=== PATIENT | female | born 1975 | race Caucasian/White ===

== ENCOUNTER 2020-09-27 02:19 | Inpatient (IN) | payer BC, SELFPAY ==
[2020-09-27] VITALS (13 sets, daily range): BP systolic 99–130; BP diastolic 49–83; PULSE 63–73; RESP 16–18; TEMP 36.6–38.1; O2SAT 91–99
--- NOTE | 2020-09-27 02:32 | W.ED.GENAD ---
Discharge Plan Disposition Patient Disposition: [facility] INPATIENT Condition: Fair Discharge Details Clinical Impression: Diverticulitis large intestine w/o perforation or abscess w/o bleeding Primary Care Provider: None,None ED Provider: Chuck Bowman Home Meds and New Rx's Prescriptions: No Action No Known Home Meds RF: 0 Medical Decision Making Patient story is very good for appendicitis, however, her exam reveals tenderness in both the right lower and right upper quadrant. She has not having pelvic pain or vaginal symptoms and pelvic exam deferred. IV established and laboratory studies sent. Morphine given for pain. CT scan of abdomen pelvis ordered. Laboratory studies with slight elevated white count to 12. Otherwise unremarkable labs. CT scan shows diverticulitis of the posterior ascending colon. This would explain the patient's right upper and right lower quadrant pain and tenderness. Because of her peritoneal signs case is discussed with surgery. Patient started on Cipro and Flagyl IV. She will be admitted to the surgical service for further management. Lab Data Lab results reviewed: Yes I reviewed the patient's lab results. HPI General Mode of arrival: ambulatory. Date/Time Provider Initiated Documentation: 09/27/20 02:32. Limitations to Documentation: no limitations. Information obtained by: patient and RN notes reviewed. HPI Narrative: Patient presents to the ED with worsening right side abdominal pain. Patient initially had abdominal pain that started on . Initially thought it was just indigestion or gas. Has become progressively worse. Movement, walking, coughing makes the pain worse. She has no appetite. She has had no fever or vomiting. She has had a few episodes of diarrhea. She denies any back pain or urinary symptoms. She denies any pelvic pain, vaginal bleeding, vaginal discharge. As the pain has continued to get worse, she finally felt the need to be evaluated. Related Data Home Medications Medication Instructions Recorded Confirmed Unknown [No Known Home Meds] 09/27/20 09/27/20 Allergies Allergy/AdvReac Type Severity Reaction Status Date / Time No Known Allergies Allergy Unverified 09/27/20 02:35 General Stated Complaint: Abd Prob JEOVANNY: 3 Review of Systems Narrative: 07/30 Review of Systems completed and is negative except as stated above in HPI (Systems reviewed: Const, Eyes, ENT, Resp, CV, GI, , MSK, Skin, Neuro) [facility] Medical History (Updated 09/27/20 @ 04:12 by Chuck Bowman MD) No significant past medical history Surgical History (Updated 09/27/20 @ 03:30 by Chuck Bowman MD) S/P ovarian cystectomy Social History Smoking/Tobacco Use Status: Never Smoking risk assessment performed?: Yes Alcohol Intake: current Alcohol Intake frequency: a few times a month Drug use: Never Substance use type: does not use Do you feel safe at home: Yes Do you feel safe in your relationship?: Yes Exam Narrative Exam Narrative: Const: WDWN female in NAD. HEENT: NC/AT. Normal facial exam. Eyes: Normal conjunctiva and sclera. Neck: Supple. Trachea midline. Lungs: Normal respiratory effort. Lungs are clear. Cor: RRR without murmur/gallop. Good radial pulses. GI: Soft and ND. Tender in the RLQ/RUQ with guarding in both quadrants as well. Peritoneal signs present on right. Back: No CVAT : deferred Neuro: A+O x 3. Normal speech, mentation, gait. Cranial nerves II - XII grossly intact. No gross motor or sensory deficit. Ext: No C/C/E. Skin: Warm and dry without rash. Course Vital Signs Vital signs: Vital Signs Temperature 97.9 F 09/27/20 02:25 Temperature 97.9 F 09/27/20 02:29 Temperature Source Temporal Artery Scan 09/27/20 02:29 Pulse 64 09/27/20 02:29 Respiratory Rate 18 09/27/20 02:29 Respiratory Effort Non-Labored 09/27/20 02:27 Blood Pressure 112/49 L 09/27/20 02:29 Blood Pressure Position Supine 09/27/20 02:29 Pulse Oximetry 98 09/27/20 02:29 Oxygen Delivery Method Room Air 09/27/20 02:29 Oxygen Flow Rate 0 09/27/20 02:29 Pain Level 7 09/27/20 02:29
[2020-09-27 02:55] LABS: Abs Immature Grans 0.04 10^3/uL (0.0-0.06); Absolute Basophil Count 0.04 10^3/uL (0.0-0.2); Absolute Eosinophil Count 0.13 10^3/uL (0.0-0.7); Absolute Lymphocyte Count 1.26 10^3/uL (1.2-3.4); Absolute Monocyte Count 1.28 10^3/uL (0.1-0.8); Basophils % 0.3; Eosinophils % 1.1; HCT 40.8 % (36.0-46.0); HGB 13.5 g/dL (11.2-15.7); Immature Grans % 0.3; Lymphocytes % 10.7; MCH 31.5 pg (27.0-33.0); MCHC 33.1 % (32.0-36.0); MCV 95.1 fL (80-95); MPV 9.8 fL (8.0-11.0); Monocytes % 10.8; Neutrophils % 76.8; Nucleated RBC 0 %; Platelet Count 190 10^3/uL (130-400); RBC 4.29 10^6/uL (3.93-5.22); RDW 11.7 % (11.7-14.6); RDW-SD 40.6 fL; WBC 11.82 10^3/uL (4.4-10.8)
[2020-09-27] MEDS: Lactated Ringers 1,000 ML 125 ML IV (02:58)
[2020-09-27] MEDS: MORPHine 10 MG/ML VIAL 4 MG IVP (02:58)
[2020-09-27 03:08] LABS: ALT 16 U/L (14-59); AST 10 U/L (15-37); Absolute Neutrophil Count 9.08 10^3/uL (1.2-6.7); Albumin 3.7 g/dL (3.4-5.0); Alkaline Phosphatase 50 U/L (46-116); Anion Gap 6.8 mmol/L (3-11); BUN 12 mg/dL (7-18); Bilirubin, Total 0.9 mg/dL (0.2-1.0); CO2 28.2 mmol/L (21.0-32.0); CREATININE 1.01 mg/dL (0.55-1.02); Chloride 99 mmol/L (98-107); Estimated GFR 59.01 (mL/min/1.73m2); Glucose 112 mg/dL (74-106); Lipase 57 U/L (73-393); Potassium 3.9 mmol/L (3.5-5.1); Sodium 134 mmol/L (136-145); Total Protein 7.7 g/dL (6.4-8.2)
[2020-09-27 03:20] LABS: HCG Qual (Serum) Negative
[2020-09-27] MEDS: Normal Saline Flush 10 ML SYR IVP ×5 (03:38→21:49)
[2020-09-27] MEDS: Omnipaque 350 MG/ML 100 ML BTL IJ (03:39)
[2020-09-27] MEDS: Normal Saline - Diluent 50 ML VIAL IV (03:40)
--- NOTE | 2020-09-27 03:51 | DI.VRAD_ITS ---
PROCEDURE INFORMATION: Exam: CT Abdomen And Pelvis With Contrast Exam date and time: 09/27/2020 2:43 AM Age: 45 years old Clinical indication: Abdominal pain; Localized; Right; Prior surgery; Surgery type: Ovarian cyst TECHNIQUE: Imaging protocol: Computed tomography of the abdomen and pelvis with intravenous contrast. Radiation optimization: All CT scans at this facility use at least one of these dose optimization techniques: automated exposure control; mA and/or kV adjustment per patient size (includes targeted exams where dose is matched to clinical indication); or iterative reconstruction. Contrast material: [id number]; Contrast volume: 91 ml; Contrast route: INTRAVENOUS (IV); COMPARISON: No relevant prior studies available. FINDINGS: Liver: Normal. No mass. Gallbladder and bile ducts: Normal. No calcified stones. No ductal dilation. Pancreas: Normal. No ductal dilation. Spleen: Normal. No splenomegaly. Adrenal glands: Normal. No mass. Kidneys and ureters: Normal. No hydronephrosis. Stomach and bowel: Acute diverticulitis of the posterior ascending colon. Appendix: No evidence of appendicitis. Intraperitoneal space: Unremarkable. No free air. No significant fluid collection. Vasculature: Unremarkable. No abdominal aortic aneurysm. Lymph nodes: Unremarkable. No enlarged lymph nodes. Urinary bladder: Unremarkable as visualized. Reproductive: Small ovarian cysts up to 3.3 cm. Bones/joints: Unremarkable. No acute fracture. Soft tissues: Unremarkable. IMPRESSION: Acute diverticulitis of the posterior ascending colon. Dictated and Authenticated by: Miah Blood MD. Ordering:JOSHUA Woods MD
--- NOTE | 2020-09-27 03:58 | DI.CT_ITS ---
EXAM: CT ABDOMEN PELVIS W CLINICAL HISTORY: right side abdominal pain/tenderness TECHNIQUE: Imaging Protocol: Axial computed tomography images with coronal and sagittal reformatted images were created and reviewed CONTRAST MATERIAL: Intravenous: Omnipaque 350 Contrast volume:91 mL Oral: No COMPARISON: No exams were available for comparison FINDINGS: ABDOMEN: Lung Bases: Normal where visualized. Liver: Normal density. No measurable mass. Portal, Superior Mesenteric, and Splenic Veins: Unremarkable. Gallbladder and Biliary Tract: No radiodense calculus or dilation. Pancreas: Normal density, no abnormal calcifications or inflammatory process. Spleen: Normal. Adrenals: No masses seen. Kidneys: Normal size, contour and axis. There is a 2 mm nonobstructing stone in the upper pole of the left kidney. No masses seen. Abdominal Aorta: Abdominal portion non-dilated. Bowel: There is no evidence of bowel obstruction. There is wall thickening seen in the distal ascend ing colon and proximal transverse colon. There does appear to be a diverticulum containing high dens ity material. There is surrounding inflammation. No pneumoperitoneum. There is a normal appendix. Peritoneal Cavity: There is a trace amount of fluid in the pelvis. Lymph Nodes: Within normal limits. Bones: Unremarkable. Soft Tissues: Unremarkable. PELVIS: Bladder: Symmetric distention, no gross wall thickening. Reproductive Organs: There are bilateral ovarian cysts. The largest on the right measures 3.5 cm. T he largest on the left measures 2.3 cm. Lymph Nodes: Within normal limits. Bones: Within normal limits. IMPRESSION: Bowel wall thickening and surrounding inflammation in the distal ascending aorta and proximal transve rse colon. There does appear to be a diverticulum associated in this region. The findings are sugge stive of acute diverticulitis. Other inflammatory or infectious colitis may also be considered. No evidence of abscess or free air. RADIATION DOSE DELIVERED: 660.65mGy.cm Total DLP DATA REPOSITORY: All CT scans at this facility are submitted to the National Radiology Data Registry (NRDR) Dose Index Registry (DIR) with the [employer] (ACR). RADIATION OPTIMIZATION: All CT scans at this facility use at least one of these dose optimization te chniques: automated exposure control; mA and/or kV adjustment per patient size (includes targeted exa ms where dose is matched to clinical indication); or iterative reconstruction.
[2020-09-27] MEDS: CIPROFLOXACIN 400 MG/200 ML BAG 200 MG IVPB ×2 (04:17→15:56)
[2020-09-27] MEDS: Ketorolac 15 MG/ML VIAL IVP (04:25)
--- NOTE | 2020-09-27 04:28 | W.PM.HP.N ---
Date of service: 09/27/20 Time of Service: 12:45 Assessment and Plan Assessment and plan (1) Diverticulitis large intestine w/o perforation or abscess w/o bleeding: Status: Acute Assessment and plan: CT reviewed and shows inflammation in the ascending colon/hepatic flexure region. Diverticulitis suspected although will check stool cultures for possible colitis. Ischemic colitis or neoplasm less likely but patient will need colonoscopy as outpatient once inflammation resolves. Will admit for IV antibiotics and pain control. History of Present Illness Narrative: The patient complains of abdominal pain starting the day prior to admission. The pain worsened and she presented to the ER early this morning. She has not had this pain before. The pain is more on the right. No fever at home but she had chills. Her stool has been loose although this is a chronic issue. She has seen a geophysical e logger this year but has not had a colonoscopy in the past. No blood in her stool. No recent antibiotic use. No FH IBD or colon cancer. She is a non smoker. Review of Systems All systems reviewed & are unremarkable except as noted in HPI and below PFSH Medical History No significant past medical history Surgical History S/P ovarian cystectomy Social History Smoking/Tobacco Use Status: Never Smoking risk assessment performed?: Yes Alcohol Intake: current Alcohol Intake frequency: a few times a month Drug use: Never Substance use type: does not use Do you feel safe at home: Yes Do you feel safe in your relationship?: Yes Meds Home Medications and Allergies Home Medications Medication Instructions Recorded Confirmed Type Unknown [No Known Home Meds] 09/27/20 09/27/20 History Allergies Allergy/AdvReac Type Severity Reaction Status Date / Time No Known Allergies Allergy Unverified 09/27/20 02:35 Exam Narrative Exam Narrative: Alert Lungs CTA Heart RRR Abdomen slightly distended, active bowel sounds, tender RUQ, no peritonitis. Results Labs Result diagrams: 09/27/20 02:50 09/27/20 02:50 Labs: Laboratory Results - last 24 hr 12/12/20 12/12/20 12/12/20 02:50 02:50 02:50 WBC 11.82 H RBC 4.29 Hgb 13.5 Hct 40.8 MCV 95.1 H MCH 31.5 MCHC 33.1 RDW 11.7 Plt Count 190 MPV 9.8 Immature Gran % 0.3 Neutrophils % 76.8 Band Neutrophils % Lymphocytes % 10.7 Atypical Lymphs % Monocytes % 10.8 Eosinophils % 1.1 Basophils % 0.3 Metamyelocytes % Myelocytes % Promyelocytes % Other Cells % Nucleated RBC % 0 Absolute Neutrophils 9.08 H Absolute Lymphocytes 1.26 Absolute Monocytes 1.28 H Absolute Eosinophils 0.13 Absolute Basophils 0.04 RBC Morphology Polychromasia Hypochromasia Poikilocytosis Basophilic Stippling Anisocytosis Microcytosis Macrocytosis Spherocytes Tear Drop Cells Ovalocytes Stomatocytes Sinha[place] Bodies Gregg Cells/Echinocytes Acanthocytes (Spur) Schistocytes Sodium 134 L Potassium 3.9 Chloride 99 Carbon Dioxide 28.2 Anion Gap 6.8 BUN 12 Creatinine 1.01 Estimated GFR/1.73 m2 59.01 Glucose 112 H Calcium 9.0 Total Bilirubin 0.9 AST 10 L ALT 16 Alkaline Phosphatase 50 Total Protein 7.7 Albumin 3.7 Lipase 57 Serum HCG, Qual Negative 09/27/20 05:35 WBC Cancelled RBC Cancelled Hgb Cancelled Hct Cancelled MCV Cancelled MCH Cancelled MCHC Cancelled RDW Cancelled Plt Count Cancelled MPV Cancelled Immature Gran % Cancelled Neutrophils % Cancelled Band Neutrophils % Cancelled Lymphocytes % Cancelled Atypical Lymphs % Cancelled Monocytes % Cancelled Eosinophils % Cancelled Basophils % Cancelled Metamyelocytes % Cancelled Myelocytes % Cancelled Promyelocytes % Cancelled Other Cells % Cancelled Nucleated RBC % Cancelled Absolute Neutrophils Cancelled Absolute Lymphocytes Cancelled Absolute Monocytes Cancelled Absolute Eosinophils Cancelled Absolute Basophils Cancelled RBC Morphology Cancelled Polychromasia Cancelled Hypochromasia Cancelled Poikilocytosis Cancelled Basophilic Stippling Cancelled Anisocytosis Cancelled Microcytosis Cancelled Macrocytosis Cancelled Spherocytes Cancelled Tear Drop Cells Cancelled Ovalocytes Cancelled Stomatocytes Cancelled Sinha[place] Bodies Cancelled Gregg Cells/Echinocytes Cancelled Acanthocytes (Spur) Cancelled Schistocytes Cancelled Sodium Potassium Chloride Carbon Dioxide Anion Gap BUN Creatinine Estimated GFR/1.73 m2 Glucose Calcium Total Bilirubin AST ALT Alkaline Phosphatase Total Protein Albumin Lipase Serum HCG, Qual Last Vital Signs Temp 97.9 F 09/27/20 02:29 Pulse 73 09/27/20 04:19 Resp 16 09/27/20 04:19 BP 113/58 L 09/27/20 04:19 Pulse Ox 96 09/27/20 04:19 COVID-19 Screening Have you, or household traveled for leisure in last 14 days?: No Had IN PERSON contact w/suspected or confirmed C-19 person: No
[2020-09-27] MEDS: Normal Saline 1,000 ML 75 ML IV ×2 (05:47→21:47)
[2020-09-27] MEDS: metroNIDAZOLE 500 MG/100 ML BAG 100 MG IVPB ×3 (05:47→21:48)
[2020-09-27] MEDS: Acetaminophen 325 MG TAB 650 MG PO ×3 (08:03→21:49)
[2020-09-27 11:39] LABS: Bilirubin Negative (Negative); Blood Negative (Negative); Clarity Clear (Clear); Glucose Negative (Negative); Ketones 40 mg/dL (Negative); Leukocyte Esterase Negative (Negative); Nitrite Negative (Negative); Specific Gravity 1.015 (1.005-1.025); Urobilinogen 0.2 EU/dL (Up TO 0.2)
[2020-09-27] MEDS: Ketorolac 30 MG/ML VIAL IVP ×2 (12:00→21:48)
[2020-09-28 01:02] LABS: HCT 34.1 % (36.0-46.0); HGB 11.2 g/dL (11.2-15.7); MCH 31.8 pg (27.0-33.0); MCHC 32.8 % (32.0-36.0); MCV 96.9 fL (80-95); Platelet Count 167 10^3/uL (130-400); RBC 3.52 10^6/uL (3.93-5.22); RDW 11.9 % (11.7-14.6); RDW-SD 42.3 fL; WBC 10.93 10^3/uL (4.4-10.8)
[2020-09-28 01:48] LABS: COVID-19 RT-PCR UVMMC Result Negative (Negative)
[2020-09-28 03:15] VITALS: BP 101/60; PULSE 61; RESP 17; TEMP 37.1; O2SAT 98
[2020-09-28] MEDS: CIPROFLOXACIN 400 MG/200 ML BAG 200 MG IVPB ×2 (04:05→15:41)
[2020-09-28] MEDS: metroNIDAZOLE 500 MG/100 ML BAG 100 MG IVPB ×2 (05:40→13:59)
[2020-09-28] MEDS: Acetaminophen 325 MG TAB 650 MG PO (08:21)
[2020-09-28] MEDS: Ketorolac 30 MG/ML VIAL IVP (08:21)
[2020-09-28] MEDS: Normal Saline Flush 10 ML SYR IVP (08:22)
[2020-09-28 08:35] VITALS: BP 109/72; PULSE 62; RESP 17; TEMP 37.2; O2SAT 99
--- NOTE | 2020-09-28 09:41 | INITIAL_ITS ---
- If Service Date Differs Date of service: 09/28/20 Time of Service: 09:41 Care Management Initial Assess REASON FOR HOSPITALIZATION:: Diverticulitis PAST MEDICAL HISTORY/PAST SURGICAL HISTORY:: No signifigant past medical hx. This is her first bout of Diverticulitis PREVIOUS FUNCTIONAL STATUS/SOCIAL/FAMILY SUPPORTS:: Tamera lives with her in [place], [place]. 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 During the winter they stay in their home in . She enjoys sking, she has no children. Her other family all lives in [place]. CURRENT FUNCTIONAL STATUS:: Tamera is alert she is engaged with CM during assessment. She is hoping for a regular lunch, she states she is feeling better today. Her spouse plans to bring her some clothes today. She has not seen the provider yet to determine her discharge plan. ADVANCE DIRECTIVES:: None on file, not interestet at this time. Has patient been provided with info about the portal/API?: Yes Did the patient sign up for the portal?: No CODE STATUS:: Full Code INSURANCE COVERAGE / FINANCIAL ISSUES:: BCBS CURRENT HOME/COMMUNITY SERVICES/EQUIPMENT:: None PRIMARY CARE PHYSICIAN:: GUERO. POTENTIAL DISCHARGE NEEDS:: Follow up with and team after discharge. PATIENT/FAMILY EDUCATION NEEDS:: Discharge education, limitations and follow up plan after discharge. ANTICIPATED BARRIERS TO DISCHARGE:: None TRANSPORTATION:: Via private car with spouse at time of discharge PLAN:: Jhonatan will be discharged home when medically anticipate no additional services at time of discharge. She will follow up as directed by provider. CM will conitnue to follow throughout hospital stay.
--- NOTE | 2020-09-28 11:01 | DSE_ITS ---
Date of service: 09/28/20 Time of Service: 15:01 DS: Diagnosis Discharge Diagnosis (1) Diverticulitis large intestine w/o perforation or abscess w/o bleeding: Status: Acute Discharge Plan Disposition Patient Disposition: HOME Condition: Improving Discharge Details Reason For Visit: DIVERTICULITIS Admit Date/Time: 09/27/20 04:18 Admit Provider: An Clayton Attending Provider: An Clayton Primary Care Provider: None,None Hospital Course Hospital Course: The patient presented to the hospital with 1 day of abdominal pain that localize d to her right side. She had chills. CT scan of the abdomen pelvis showed inflammation at the hepatic flexure consistent with diverticulitis. There is no perforation. She was admitted for pain control and IV antibiotics. She did initially have a fever but this improved over her hospital course. Her white blood cell count on the day of admission was 11,000 and decreased to 10,000. Her appetite was initially poor but she was able to tolerate clear liquids. Her diet was advanced without difficulty the day after admission. Her pain was improved. She was discharged home with plans to follow-up in the surgery clinic to discuss outpatient colonoscopy in about 4 to 6 weeks. Home Meds and New Rx's Prescriptions: New ciprofloxacin HCl 500 mg tablet 500 mg PO BID Qty: 20 RF: 0 metronidazole [Flagyl] 500 mg tablet 500 mg PO Q8H Qty: 30 RF: 0 Discharge Instructions Additional Instructions: Call for any concerns including fever, increased pain, vomiting. Activity is as tolerated. Take in a low fiber diet for 1-[address] if on narcotic pain meds or if limited by pain. May use Tylenol alternating with ibuprofen for pain control. The maximum dose for Tylenol is 4000 mg/day. May use ibuprofen 800 mg every 8 hours as needed. If concerned about constipation, you may use a stool softener or milk of magnesia. Referrals: An Clayton MD [ [facility] STAFF PHYSICIAN] - (Return on 10/06/20) Activity:: Activity as Tolerated Equipment/Supplies:: No Equipment Needed Diet:: Low fiber Discharge Orders Discharge Orders: Discharge Order (Routine); Ordered 09/28/20 Ordered By: An Clayton DS: Summary Status at Discharge Functional status at discharge: independent ambulation Overall status at discharge: patient is progressing back to baseline Mental Status: mental status grossly normal Speech and Movement: speech and movement normal Mood: congruent mood Affect: normal affect Exam Narrative Exam Narrative: Alert Abdomen slightly distended but soft. Minimal and improved RUQ tenderness Psych Mental Status: mental status grossly normal Speech and Movement: speech and movement normal Mood: congruent mood Affect: normal affect DS: Data Vitals/I&O Vitals and I&O: Vital Signs Temperature 99.0 F 09/28/20 08:35 Temperature Source Temporal Artery Scan 09/28/20 08:35 Pulse 62 09/28/20 08:35 Pulse Rhythm Regular 09/28/20 07:05 Respiratory Rate 17 09/28/20 08:35 Respiratory Effort Non-Labored 09/28/20 07:05 Respiratory Depth Normal 09/28/20 07:05 Respiratory Pattern Normal 09/28/20 07:05 Blood Pressure 109/72 09/28/20 08:35 Blood Pressure Position Supine 09/27/20 02:29 Pulse Oximetry 99 09/28/20 08:35 Oxygen Delivery Method Room Air 09/28/20 08:35 Oxygen Flow Rate 0 09/28/20 08:35 Pain Level 0 09/28/20 09:18 Comment 09/28/20 08:00 Intake & Output 09/27/20 09/27/20 09/28/20 11:59 23:59 11:59 Intake Total 1797.5 / 4517.50 2720.00 / 4517.50 1270 / 1270 Output Total 1700 / 2475 775 / 2475 900 / 900 Balance 97.5 / 2042.50 1945.00 / 2042.50 370 / 370 Weight 140 lb Intake: IV 887.5 / 2307.50 1420.00 / 2307.50 Oral 910 / 2210 1300 / 2210 1270 / 1270 Output: Urine 1700 / 2475 775 / 2475 900 / 900 Other: Urine Color Straw Straw Light Amanda Urine Appearance Clear Clear Clear Urine Odor Normal Normal Normal Comment Void x1 in the toilet. Void x1 in the toilet. Void x1 in the toilet. Voiding Methods Toilet Toilet Toilet Data Completed and Pending Labs on day of discharge: Labs from last 24 hours 09/28/20 09/27/20 09/27/20 00:45 11:30 05:05 WBC 10.93 H RBC 3.52 L Hgb 11.2 D Hct 34.1 L MCV 96.9 H MCH 31.8 MCHC 32.8 RDW 11.9 Plt Count 167 MPV 10.0 Urine Color Yellow Urine Clarity Clear Urine pH 6.0 Ur Specific Biggs 1.015 Urine Protein Negative Urine Ketones 40 H Urine Blood Negative Urine Nitrite Negative Urine Bilirubin Negative Urine Urobilinogen 0.2 Ur Leukocyte Esterase Negative Urine Glucose Negative SARS-CoV-2 (PCR) Negative Nasopharyn COVID-19 PCR Not Applicable Ref Test Perform Site [facility] lab [facility] Medical History No significant past medical history Surgical History S/P ovarian cystectomy Social History Smoking/Tobacco Use Status: Never Smoking risk assessment performed?: Yes Alcohol Intake: current Alcohol Intake frequency: a few times a month Drug use: Never Substance use type: does not use Do you feel safe at home: Yes Do you feel safe in your relationship?: Yes
== END 2020-09-28 17:12 | disposition home or self-care (01) | DRG 392 ==
LOC: ER 04:25 → MS 05:20
PROVIDERS: Admitting Provider Surgery; Emergency Provider Emergency Medicine; Visit Provider Surgery
DX: K57.32 Diverticulitis of large intestine without perforation or abscess without bleeding (principal)
CPT/HCPCS: 36415; 80053; 83690; 85027; 96361; 96365; 96375; 99222; 99238; 99285; U0003; 74177; 81003; 84703; 85025; J0744; J1885; J2270; J3490

== ENCOUNTER 2020-12-02 02:55 | Outpatient (CLI) | payer BC, SELFPAY ==
[2020-12-03 13:30] LABS: COVID-19 RT-PCR UVMMC Result Negative (Negative)
== END 2020-12-02 02:56 | disposition home or self-care (01) ==
LOC: LBO 02:56
PROVIDERS: Surgery; Visit Provider Surgery
DX: Z20.822 Contact with and (suspected) exposure to COVID-19 (principal); Z01.818 Encounter for other preprocedural examination
CPT/HCPCS: U0003

== ENCOUNTER 2020-12-05 06:10 | Day surgery (SDC) | payer BC, SELFPAY ==
[2020-12-05 06:15] VITALS: BP 101/63; PULSE 61; RESP 18; TEMP 36.6; O2SAT 100
[2020-12-05] MEDS: Lactated Ringers 1,000 ML 80 ML IV (06:44)
--- NOTE | 2020-12-05 08:18 | W.COLOREPORT ---
Date of service: 12/05/20 Time of Service: 08:18 Colonoscopy Report Pre-op diagnosis general: diverticulitis Post-op diagnosis procedure note: same Procedure: colonoscopy Surgeon: Jluis Kendall Anesthesia proc note operative: MAC Pathology: none sent Complications: None Disposition: same day Indications: Diveriticlulitis Prep: Miralax Findings: Mucosa normal throughout the colon. No inflamation no polyps. There were a few diverticluli in the hepatic and in the splenic flexure without inflamation Procedure Description: the olympus colonoscope was introduced and easily passed to the cecum the appendiceal ofifice and icv were visualized. The scope was slowly withdrawn. findings as above. A u turn was performed in the rectum
--- NOTE | 2020-12-05 08:25 | W.PM.DSUDISC ---
Discharge Plan Disposition Patient Disposition: HOME Condition: Good Discharge Details Reason For Visit: colonoscopy Attending Provider: Jluis Kendall Primary Care Provider: Unknown,Unknown Home Meds and New Rx's Prescriptions: No Action polyethylene glycol 3350 17 gram/dose powder 238 g PO ONCE Qty: 238 RF: 0 bisacodyl [Dulcolax (bisacodyl)] 5 mg tablet,delayed release (DR/EC) 5 mg PO ONCE Qty: 4 RF: 0 Discharge Instructions Additional Instructions: use metamucil to keep your stool soft Activity:: Activity as Tolerated Diet:: As Tolerated Discharge Orders Discharge Orders: Discharge Order (Routine); Ordered 12/05/20 Ordered By: Jluis Kendall
[2020-12-05 08:30] VITALS: BP 103/63; PULSE 52; RESP 16; TEMP 36.2; O2SAT 100
== END 2020-12-05 09:05 | disposition home or self-care (01) ==
PROVIDERS: Visit Provider Surgery
PROC: 0DJD8ZZ Inspection of Lower Intestinal Tract, Via Natural or Artificial Opening Endoscopic (ICD-10-PCS; CPT 45378; principal; 2020-12-05 07:30)
DX: Z12.11 Encounter for screening for malignant neoplasm of colon (principal); K57.30 Diverticulosis of large intestine without perforation or abscess without bleeding
CPT/HCPCS: 45378; 81025; J2001